=== PATIENT | male | born 1955 | race Caucasian/White ===

== ENCOUNTER → 2016-07-06 | Outpatient (CLI) | payer BC, OTHER ==
[2015-05-25 15:35] VITALS: BP 121/72
[2016-07-06 16:01] LABS: BASO % 1 % (0-3); EOS # 0.1 x10^3/uL (0.0-0.7); EOS % 2 % (0-3); HEMATOCRIT 36.9 % (39.0-53.0); HEMOGLOBIN 12.6 g/dL (13.0-17.5); LYMPH # 1.2 x10^3/uL (1.0-4.8); LYMPH % 35 % (24-48); MEAN CORPUSCULAR HEMOGLOBIN 33 pg (25-35); MEAN CORPUSCULAR HGB CONC 34 g/dL (31-37); MEAN CORPUSCULAR VOLUME 97 fL (79-100); MONO # 0.4 x10^3/uL (0.0-1.1); MONO % 12 % (0-9); NEUT # 1.8 x10^3uL (1.8-7.7); NEUT % 51 % (31-73); PLATELET COUNT 202 x10^3/uL (140-400); WHITE BLOOD COUNT 3.6 x10^3/uL (4.0-11.0)
[2016-07-06 16:10] LABS: ALBUMIN 3.6 g/dL (3.4-5.0); ALBUMIN/GLOBULIN RATIO 1.1 (1.0-1.7); CALCIUM 8.6 mg/dL (8.5-10.1); CREATININE 1.1 mg/dL (0.7-1.3); GFR 67.8; POTASSIUM 3.9 mmol/L (3.5-5.1); TOTAL BILIRUBIN 0.4 mg/dL (0.2-1.0); TOTAL PROTEIN 6.8 g/dL (6.4-8.2)
== END | disposition home or self-care (01) ==
LOC: LAB 14:32
PROVIDERS: ATTEND Internal Medicine Infectious Disease
DX: T84.53XA Infection and inflammatory reaction due to internal right knee prosthesis, initial encounter (principal)
CPT/HCPCS: 36415; 80053; 85027

== ENCOUNTER → 2017-06-14 | Outpatient (CLI) | payer BC, OTHER ==
[2015-05-25 15:35] VITALS: BP 121/72
[2017-06-14 15:20] LABS: BASO % 1 % (0-3); EOS # 0.1 x10^3/uL (0.0-0.7); EOS % 2 % (0-3); HEMATOCRIT 37.4 % (39.0-53.0); HEMOGLOBIN 12.7 g/dL (13.0-17.5); LYMPH # 0.9 x10^3/uL (1.0-4.8); LYMPH % 23 % (24-48); MEAN CORPUSCULAR HEMOGLOBIN 33 pg (25-35); MEAN CORPUSCULAR HGB CONC 34 g/dL (31-37); MEAN CORPUSCULAR VOLUME 98 fL (79-100); MONO # 0.4 x10^3/uL (0.0-1.1); MONO % 12 % (0-9); NEUT # 2.4 x10^3uL (1.8-7.7); NEUT % 63 % (31-73); PLATELET COUNT 178 x10^3/uL (140-400); RED BLOOD COUNT 3.81 x10^6/uL (4.30-5.70); RED CELL DISTRIBUTION WIDTH 14.8 % (11.5-14.5); WHITE BLOOD COUNT 3.8 x10^3/uL (4.0-11.0)
[2017-06-14 15:38] LABS: ALBUMIN 3.5 g/dL (3.4-5.0); ALBUMIN/GLOBULIN RATIO 1.1 (1.0-1.7); CALCIUM 8.6 mg/dL (8.5-10.1); CREATININE 0.9 mg/dL (0.7-1.3); GFR 85.2; TOTAL BILIRUBIN 0.3 mg/dL (0.2-1.0); TOTAL PROTEIN 6.7 g/dL (6.4-8.2)
[2017-06-14 17:50] LABS: SEDIMENTATION RATE 8 (0-15)
== END | disposition home or self-care (01) ==
LOC: LAB 14:11
PROVIDERS: ATTEND Internal Medicine Infectious Disease
DX: T84.54XA Infection and inflammatory reaction due to internal left knee prosthesis, initial encounter (principal)
CPT/HCPCS: 36415; 80053; 85025; 85651

== ENCOUNTER → 2018-10-24 | Outpatient (CLI) | payer BC, OTHER ==
[2015-05-25 15:35] VITALS: BP 121/72
[2018-10-24 14:49] LABS: BASO % 1 % (0-3); EOS % 1 % (0-3); HEMATOCRIT 29.3 % (39.0-53.0); HEMOGLOBIN 9.8 g/dL (13.0-17.5); LYMPH # 0.8 x10^3/uL (1.0-4.8); LYMPH % 24 % (24-48); MEAN CORPUSCULAR HEMOGLOBIN 32 pg (25-35); MEAN CORPUSCULAR HGB CONC 33 g/dL (31-37); MEAN CORPUSCULAR VOLUME 95 fL (79-100); MONO # 0.4 x10^3/uL (0.0-1.1); MONO % 13 % (0-9); NEUT # 2.1 x10^3uL (1.8-7.7); NEUT % 62 % (31-73); PLATELET COUNT 226 x10^3/uL (140-400); RED BLOOD COUNT 3.09 x10^6/uL (4.30-5.70); WHITE BLOOD COUNT 3.5 x10^3/uL (4.0-11.0)
[2018-10-24 14:58] LABS: ALBUMIN 3.3 g/dL (3.4-5.0); ALBUMIN/GLOBULIN RATIO 0.9 (1.0-1.7); CALCIUM 8.6 mg/dL (8.5-10.1); CREATININE 0.9 mg/dL (0.7-1.3); POTASSIUM 4.3 mmol/L (3.5-5.1); TOTAL BILIRUBIN 0.3 mg/dL (0.2-1.0); TOTAL PROTEIN 6.8 g/dL (6.4-8.2)
[2018-10-24 15:56] LABS: SEDIMENTATION RATE 19 (0-15)
== END | disposition home or self-care (01) ==
LOC: LAB 14:01
PROVIDERS: ATTEND Internal Medicine Infectious Disease
DX: T84.54XA Infection and inflammatory reaction due to internal left knee prosthesis, initial encounter (principal)
CPT/HCPCS: 36415; 80053; 85025; 85651

== ENCOUNTER → 2019-04-02 | Outpatient (CLI) | payer BC, MEDICARE, OTHER ==
[2015-05-25 15:35] VITALS: BP 121/72
[2019-04-02 16:38] LABS: BASO % 1 % (0-3); EOS % 1 % (0-3); HEMATOCRIT 37.1 % (39.0-53.0); HEMOGLOBIN 12.5 g/dL (13.0-17.5); LYMPH # 1.1 x10^3/uL (1.0-4.8); LYMPH % 31 % (24-48); MEAN CORPUSCULAR HEMOGLOBIN 34 pg (25-35); MEAN CORPUSCULAR HGB CONC 34 g/dL (31-37); MEAN CORPUSCULAR VOLUME 99 fL (79-100); MONO # 0.4 x10^3/uL (0.0-1.1); MONO % 13 % (0-9); NEUT # 1.9 x10^3uL (1.8-7.7); NEUT % 54 % (31-73); PLATELET COUNT 210 x10^3/uL (140-400); RED BLOOD COUNT 3.74 x10^6/uL (4.30-5.70); RED CELL DISTRIBUTION WIDTH 14.5 % (11.5-14.5); WHITE BLOOD COUNT 3.4 x10^3/uL (4.0-11.0)
[2019-04-02 17:08] LABS: ALBUMIN 3.7 g/dL (3.4-5.0); ALBUMIN/GLOBULIN RATIO 1.1 (1.0-1.7); CALCIUM 8.9 mg/dL (8.5-10.1); CREATININE 0.8 mg/dL (0.7-1.3); POTASSIUM 4.1 mmol/L (3.5-5.1); TOTAL BILIRUBIN 0.4 mg/dL (0.2-1.0); TOTAL PROTEIN 7.2 g/dL (6.4-8.2)
[2019-04-02 17:44] LABS: SEDIMENTATION RATE 12 (0-15)
== END | disposition home or self-care (01) ==
LOC: LAB 15:28
PROVIDERS: ATTEND Internal Medicine Infectious Disease
DX: Z09 Encounter for follow-up examination after completed treatment for conditions other than malignant neoplasm (principal); Z96.652 Presence of left artificial knee joint
CPT/HCPCS: 36415; 80053; 85025; 85651

== ENCOUNTER → 2019-09-02 | Outpatient (CLI) | payer BC, MEDICARE, OTHER ==
[2015-05-25 15:35] VITALS: BP 121/72
[2019-09-02 16:00] LABS: BASO % 1 % (0-3); EOS % 1 % (0-3); HEMATOCRIT 34.5 % (39.0-53.0); HEMOGLOBIN 11.8 g/dL (13.0-17.5); LYMPH # 0.9 x10^3/uL (1.0-4.8); LYMPH % 22 % (24-48); MEAN CORPUSCULAR HEMOGLOBIN 34 pg (25-35); MEAN CORPUSCULAR HGB CONC 34 g/dL (31-37); MEAN CORPUSCULAR VOLUME 99 fL (79-100); MONO # 0.5 x10^3/uL (0.0-1.1); MONO % 13 % (0-9); NEUT # 2.4 x10^3uL (1.8-7.7); NEUT % 62 % (31-73); PLATELET COUNT 197 x10^3/uL (140-400); RED BLOOD COUNT 3.47 x10^6/uL (4.30-5.70); RED CELL DISTRIBUTION WIDTH 14.1 % (11.5-14.5); WHITE BLOOD COUNT 3.8 x10^3/uL (4.0-11.0)
[2019-09-02 16:20] LABS: ALBUMIN 3.5 g/dL (3.4-5.0); ALBUMIN/GLOBULIN RATIO 1.1 (1.0-1.7); CALCIUM 8.5 mg/dL (8.5-10.1); POTASSIUM 4.3 mmol/L (3.5-5.1); TOTAL BILIRUBIN 0.3 mg/dL (0.2-1.0); TOTAL PROTEIN 6.8 g/dL (6.4-8.2)
== END | disposition home or self-care (01) ==
LOC: LAB 15:07
PROVIDERS: ATTEND Internal Medicine Nephrology
DX: M00.9 Pyogenic arthritis, unspecified (principal)
CPT/HCPCS: 36415; 80053; 85025